=== PATIENT | female | born 1950 | race Caucasian/White ===

== ENCOUNTER 2017-10-12 11:42 | Day surgery (SDC) | payer MEDICARE, OTHER ==
[~2017-10-12] VITALS: Ht 147.3 cm; Wt 97.7 kg
--- NOTE | ~2017-10-12 | OP ---
PATIENT NAME: KATIE ENGEL MEDICAL RECORD: [id number] :54 [facility] [place] AD[facility] DATE: SURGEON: SHAHIDA CANDELARIA DO DATE OF OPERATION: 10/12/2017 PROCEDURE: EGD with biopsies. INDICATIONS FOR PROCEDURE: Dysphagia. SCOPE: Olympus video gastroscope. MEDICATIONS: Propofol 300 mg IV per anesthesia. ESTIMATED BLOOD LOSS: Minimal. COMPLICATIONS: None. FINDINGS: Informed consent was given. The patient was made comfortable with the above medication. After reaching an adequate level of sedation by slow IV push, the patient was placed on her left side. The endoscope was advanced under direct visualization through the mouth to the second portion of the duodenum. The upper, middle, and lower thirds of the esophagus appeared normal. At the GE junction, there was some evidence of some LA class A reflux-induced esophagitis. There was also a single area that was nodular and stood out from the remaining tissue at the GE junction. A single cold forceps biopsy was taken of this site for histopathology. Cold forceps biopsies were also taken and a normal appearing GE junction to rule out the presence of Bustamante esophagus. The endoscope was advanced beyond the GE junction into the stomach and retroflexed to view the cardia, where a small sliding hiatal hernia was present. Throughout the stomach, there was some patchy erythema and granularity consistent with gastritis. Random biopsies were taken to submit for histology and to rule out H. pylori. There was also a single, small, and shallow or superficial ulceration in the antrum, which showed no bleeding stigmata. The endoscope was advanced beyond the pylorus into the duodenum where the entire examined duodenum appeared normal. The endoscope was then withdrawn from the patient. The patient tolerated the procedure well and there were no complications. IMPRESSION: 1. LA class A reflux-induced esophagitis. 2. Nodular mucosa at the GE junction, which was biopsied with cold forceps. 3. Small sliding hiatal hernia. 4. Gastritis with biopsies pending. 5. Gastric ulcer without bleeding stigmata. PLAN AND RECOMMENDATIONS: 1. Discharge home when recovery parameters are met. 2. Follow up biopsy specimen results. 3. GERD diet and reflux precautions. 4. Continue current medications. 5. Start pantoprazole 40 mg daily times 60 days. 6. Barium esophagram regarding the ongoing dysphagia. 7. Consider manometry study if the esophagram is normal. TRANSINT:[id number] Voice Confirmation ID: [id number] DOCUMENT ID: [id number] OPERATIVE REPORT [id number] KATIE ENGEL,SHAHIDA Bonilla DO at 1524 CC: [id number] DICTATION DATE: 10/12/17 1457 FUR DRUMMER: 10/12/17 1619 [facility] 10/12/17 [place] [id number]
[~2017-10-12 11:42] MED LIST: BAYER ASPIRIN325 MG PO; CATAPRES0.1 MG PO; COREG 3.1253.125 MG PO; HYDROCODON-ACE1 EAC7 PO; LEVAQUIN750 MG PO; MUCINEX600 MG PO; PRAVACHOL20 MG PO; PRINIVIL20 MG PO; TESSALON PERLE100 MG PO
[2017-10-12 13:31] VITALS: BP 174/71; Ht 147.3 cm; Wt 97.7 kg
[2017-10-12 14:38] LABS: BASOPHILS 0.5 % (0-2); EOSINOPHILS 2.7 % (0-7); HEMATOCRIT 49.7 % (36.0-48.0); HEMOGLOBIN 16.4 g/dL (12-16); IMMATURE GRANULOCYTES 0.2 % (0-5); LYMPHOCYTES 33.1 % (15-50); MCH 30.1 pg (26.0-34.0); MCV 91.2 fL (80.0-100.0); MONOCYTES 9.1 % (2-11); NEUTROPHILS 54.4 % (40-80); PLATELET COUNT 186 10x3/uL (130-400); RBC 5.45 10x6/uL (4.00-5.40); RDW 13.3 % (11.5-14.5); WBC 8.7 10x3/uL (4.8-10.8)
[2017-10-12 14:43] LABS: CALC OSMOLALITY 277 mosm/kg (275-300); CALCIUM 8.8 mg/dL (8.5-10.1); CARBON DIOXIDE 28.8 mmol/L (21.0-32.0); CHLORIDE - SERUM 103 mmol/L (98-107); CREATININE - SERUM 0.7 mg/dL (0.6-1.3); GLUCOSE 76 mg/dL (74-106); POTASSIUM - SERUM 4.3 mmol/L (3.5-5.1); SODIUM 140 mmol/L (136-145); UREA NITROGEN 12 mg/dL (7-18); eGFR NON AFRICAN AMERICAN 89 mL/min (90-120)
== END 2017-10-12 15:52 | disposition home or self-care (01) ==
LOC: D.OPS 11:42
PROVIDERS: Anesthesiology
DX: R13.10 Dysphagia, unspecified (principal); K21.0 Gastro-esophageal reflux disease with esophagitis; K44.9 Diaphragmatic hernia without obstruction or gangrene; K29.70 Gastritis, unspecified, without bleeding; K25.9 Gastric ulcer, unspecified as acute or chronic, without hemorrhage or perforation; I25.10 Atherosclerotic heart disease of native coronary artery without angina pectoris; I10 Essential (primary) hypertension; G47.30 Sleep apnea, unspecified; J44.9 Chronic obstructive pulmonary disease, unspecified; E66.01 Morbid (severe) obesity due to excess calories; Z68.41 Body mass index [BMI] 40.0-44.9, adult; Z01.812 Encounter for preprocedural laboratory examination

== ENCOUNTER → 2017-10-14 08:58 | Outpatient (CLI) | payer MEDICARE, OTHER ==
[2017-10-12 13:31] VITALS: BMI 45.0
[~2017-10-14 08:58] MED LIST changes: +PROTONIX40 MG PO
== END | disposition home or self-care (01) ==
LOC: D.RAD 08:58
DX: R13.10 Dysphagia, unspecified (principal)

== ENCOUNTER 2017-10-19 11:23 | Day surgery (SDC) | payer MEDICARE, OTHER ==
[~2017-10-19] VITALS: Ht 147.3 cm; Wt 90.9 kg
--- NOTE | ~2017-10-19 | OP ---
PATIENT NAME: KATEI ENGEL MEDICAL RECORD: [id number] :54 [facility] ADMISSION DATE: SURGEON: SHAHIDA CANDELARIA DO DATE OF OPERATION: 10/19/2017 PROCEDURE: Colonoscopy. INDICATIONS FOR PROCEDURE: Screening for colorectal cancer. SCOPE: Olympus video pediatric colonoscope. MEDICATIONS: Propofol 320 mg IV per anesthesia. WITHDRAWAL TIME: 13 minutes. ESTIMATED BLOOD LOSS: None. COMPLICATIONS: None. FINDINGS: Informed consent was given. The patient was made comfortable with the above medication. After reaching an adequate level of sedation by slow IV push, the patient was placed on her left side. A digital rectal examination was performed and was normal. The endoscope was then advanced under direct visualization through the rectum to the cecum with visualization of the appendiceal orifice and ileocecal valve. The scope was slowly withdrawn and mucosa was carefully examined. The prep quality on this examination was poor. A significant amount of time was spent irrigating and suctioning stool for a reasonable look at the mucosal surface. There were no polyps visualized on today's examination. There was moderate diverticulosis of the descending and sigmoid colon seen. Retroflexion was performed in the rectum with a normal appearing rectal wall. The endoscope was withdrawn from the patient. The patient tolerated the procedure well and there were no complications. IMPRESSION: 1. Moderate diverticulosis of the descending and sigmoid colon. 2. Poor prep. PLAN AND RECOMMENDATIONS: 1. Discharge home when recovery parameters are met. 2. High fiber diet. 3. Continue current medications. 4. Recall colonoscopy in 1-2 years due to the poor prep today. TRANSINT:[id number] Voice Confirmation ID: [id number] DOCUMENT ID: [id number] SHAHIDA CANDELARIA DO at 0911 CC: [id number] DICTATION DATE: 10/19/17 1401 [employer]IVE DIAGNOSTIC TECHNICIAN: 10/19/17 1411 [facility] 10/19/[address] [facility] [address] [place] [address]
[~2017-10-19 11:23] MED LIST changes: -PROTONIX40 MG PO
[2017-10-19] MEDS ORDERED: PROTONIX40 MG PO (12:09)
[2017-10-19 12:13] VITALS: BP 133/67; Ht 147.3 cm; Wt 90.9 kg
[2017-10-19 12:26] LABS: BASOPHILS 0.4 % (0-2); EOSINOPHILS 2.5 % (0-7); HEMATOCRIT 49.9 % (36.0-48.0); HEMOGLOBIN 16.4 g/dL (12-16); IMMATURE GRANULOCYTES 0.1 % (0-5); LYMPHOCYTES 33.9 % (15-50); MCH 30.1 pg (26.0-34.0); MCHC 32.9 g/dL (31.0-37.0); MCV 91.7 fL (80.0-100.0); MEAN PLATELET VOLUME 10.8 fL (7.4-10.4); MONOCYTES 7.8 % (2-11); NEUTROPHILS 55.3 % (40-80); PLATELET COUNT 204 10x3/uL (130-400); RBC 5.44 10x6/uL (4.00-5.40); RDW 13.5 % (11.5-14.5); WBC 7.3 10x3/uL (4.8-10.8)
[2017-10-19 13:31] LABS: CALC OSMOLALITY 289 mosm/kg (275-300); CALCIUM 9.4 mg/dL (8.5-10.1); CARBON DIOXIDE 28.2 mmol/L (21.0-32.0); CHLORIDE - SERUM 105 mmol/L (98-107); CREATININE - SERUM 0.7 mg/dL (0.6-1.3); GLUCOSE 90 mg/dL (74-106); POTASSIUM - SERUM 4.5 mmol/L (3.5-5.1); SODIUM 145 mmol/L (136-145); UREA NITROGEN 14 mg/dL (7-18); eGFR NON AFRICAN AMERICAN 89 mL/min (90-120)
== END 2017-10-19 15:01 | disposition home or self-care (01) ==
LOC: D.OPS 11:23
PROVIDERS: Anesthesiology
DX: Z12.11 Encounter for screening for malignant neoplasm of colon (principal); K57.30 Diverticulosis of large intestine without perforation or abscess without bleeding; I10 Essential (primary) hypertension; E66.01 Morbid (severe) obesity due to excess calories; Z68.41 Body mass index [BMI] 40.0-44.9, adult; G47.30 Sleep apnea, unspecified; Z01.812 Encounter for preprocedural laboratory examination

== ENCOUNTER 2018-01-07 08:18 | Outpatient (CLI) | payer MEDICARE, OTHER ==
[2017-10-19 12:13] VITALS: BMI 41.8
[~2018-01-07 08:18] MED LIST changes: +PROTONIX40 MG PO
== END 2018-01-07 09:45 ==
LOC: D.OPS 08:18
DX: R13.10 Dysphagia, unspecified (principal); Z01.812 Encounter for preprocedural laboratory examination

== ENCOUNTER → 2018-02-15 08:35 | Outpatient (CLI) | payer MEDICARE, OTHER ==
[2017-10-19 12:13] VITALS: BMI 41.8
== END | disposition home or self-care (01) ==
LOC: D.RAD 08:35
DX: R13.10 Dysphagia, unspecified (principal)

== ENCOUNTER → 2018-02-18 22:19 | Outpatient (CLI) | payer MEDICARE, OTHER ==
[2017-10-19 12:13] VITALS: BMI 41.8
== END | disposition home or self-care (01) ==
LOC: D.MAMMO 15:00
DX: Z12.31 Encounter for screening mammogram for malignant neoplasm of breast (principal)